=== PATIENT | male | born 1990 | race Caucasian/White ===

== ENCOUNTER 2018-07-20 11:06 | Emergency (ER) | payer OTHER ==
[~2018-07-20] VITALS: Ht 182.9 cm; Wt 79.4 kg
[2018-07-20] MEDS ORDERED: ALBU90OI6 INH (12:04)
[2018-07-20] MEDS ORDERED: QVAR REDIHALE10.6 GM IH (12:04)
[2018-07-20] MEDS ORDERED: Zithromax250 MG PO (12:21)
[2018-07-20] MEDS ORDERED: Prednisone20 MG PO (12:21)
== END 2018-07-20 12:29 | disposition home or self-care (01) ==
LOC: ER 11:06
DX: K05.10 Chronic gingivitis, plaque induced (principal); R59.0 Localized enlarged lymph nodes; Z79.899 Other long term (current) drug therapy; F17.200 Nicotine dependence, unspecified, uncomplicated
CPT/HCPCS: 99282

== ENCOUNTER 2018-08-23 20:43 | Emergency (ER) | payer OTHER ==
[~2018-08-23] VITALS: Ht 182.9 cm; Wt 79.4 kg
[~2018-08-23 20:43] MED LIST: ALBU90OI6 INH; Prednisone20 MG PO; QVAR REDIHALE10.6 GM IH; Zithromax250 MG PO
[2018-08-23] MEDS ORDERED: QVAR REDIHALE10.6 GM INH (21:42)
[2018-08-23] MEDS ORDERED: ALBU90OI INH (21:42)
== END 2018-08-23 21:45 | disposition home or self-care (01) ==
LOC: ER 20:43
DX: Z76.0 Encounter for issue of repeat prescription (principal); Z87.891 Personal history of nicotine dependence; J45.909 Unspecified asthma, uncomplicated
CPT/HCPCS: 99281

== ENCOUNTER 2018-12-28 11:01 | Emergency (ER) | payer OTHER ==
[~2018-12-28] VITALS: Ht 182.9 cm; Wt 81.7 kg
[~2018-12-28 11:01] MED LIST changes: +ALBU90OI INH; +QVAR REDIHALE10.6 GM INH
[2018-12-28] MEDS ORDERED: ALBU90OI INH (11:57)
[2018-12-28] MEDS ORDERED: QVAR REDIHALE10.6 GM INH (11:57)
[2018-12-28] MEDS ORDERED: Prednisone20 MG PO (11:57)
== END 2018-12-28 12:14 | disposition home or self-care (01) ==
LOC: ER 11:01
DX: J45.901 Unspecified asthma with (acute) exacerbation (principal); Z87.891 Personal history of nicotine dependence
CPT/HCPCS: 94640; 94760; 99283-25

== ENCOUNTER 2019-11-18 00:08 | Emergency (ER) | payer OTHER ==
[~2019-11-18] VITALS: Ht 182.9 cm; Wt 79.4 kg
[2019-11-18] MEDS ORDERED: QVAR REDIHALE10.6 G2 INH (00:40)
[2019-11-18] MEDS ORDERED: ALBU90OI INH (00:40)
== END 2019-11-18 01:15 | disposition home or self-care (01) ==
LOC: ER 00:08
DX: J45.909 Unspecified asthma, uncomplicated (principal); Z76.0 Encounter for issue of repeat prescription
CPT/HCPCS: 99281

== ENCOUNTER 2020-06-21 10:59 | Emergency (ER) | payer OTHER ==
[~2020-06-21] VITALS: Ht 182.9 cm; Wt 81.7 kg
[~2020-06-21 10:59] MED LIST changes: +QVAR REDIHALE10.6 G2 INH
[2020-06-21] MEDS ORDERED: QVAR REDIHALE10.6 G3 INH (11:55)
[2020-06-21] MEDS ORDERED: ALBU90OI INH (11:55)
== END 2020-06-21 12:00 | disposition home or self-care (01) ==
LOC: ER 10:59
DX: J45.909 Unspecified asthma, uncomplicated (principal); Z76.0 Encounter for issue of repeat prescription; F17.200 Nicotine dependence, unspecified, uncomplicated; Z79.899 Other long term (current) drug therapy; Z79.51 Long term (current) use of inhaled steroids
CPT/HCPCS: 99281

== ENCOUNTER 2021-12-20 01:58 | Emergency (ER) | payer OTHER ==
[~2021-12-20] VITALS: Ht 182.9 cm; Wt 81.7 kg
[~2021-12-20 01:58] MED LIST changes: +QVAR REDIHALE10.6 G3 INH
[2021-12-20] MEDS ORDERED: ALBU90OI INH (03:01)
== END 2021-12-20 03:17 | disposition home or self-care (01) ==
LOC: ER 01:58
DX: J45.901 Unspecified asthma with (acute) exacerbation (principal); F17.200 Nicotine dependence, unspecified, uncomplicated; Z79.899 Other long term (current) drug therapy
CPT/HCPCS: 94640; 94664; A9270; J1100

== ENCOUNTER 2022-03-05 01:07 | Emergency (ER) | payer OTHER ==
[~2022-03-05] VITALS: Ht 182.9 cm; Wt 79.4 kg
== END 2022-03-05 04:18 | disposition home or self-care (01) ==
LOC: ER 01:07
DX: J45.901 Unspecified asthma with (acute) exacerbation (principal); F17.200 Nicotine dependence, unspecified, uncomplicated; Z79.899 Other long term (current) drug therapy
CPT/HCPCS: 94644; 94664; A9270; J1100

== ENCOUNTER 2022-04-22 00:18 | Emergency (ER) | payer OTHER ==
[~2022-04-22] VITALS: Ht 182.9 cm; Wt 81.7 kg
[2022-04-22] MEDS ORDERED: Ventolin/Prove6.7 GM INH (00:37)
== END 2022-04-22 00:43 | disposition home or self-care (01) ==
LOC: ER 00:18
DX: Z76.0 Encounter for issue of repeat prescription (principal); J45.909 Unspecified asthma, uncomplicated; F17.290 Nicotine dependence, other tobacco product, uncomplicated; Z79.899 Other long term (current) drug therapy
CPT/HCPCS: A9270

== ENCOUNTER 2022-05-02 17:23 | Emergency (ER) | payer OTHER ==
[~2022-05-02] VITALS: Ht 182.9 cm; Wt 81.7 kg
[~2022-05-02 17:23] MED LIST changes: +Ventolin/Prove6.7 GM INH
[2022-05-02] MEDS ORDERED: QVAR REDIHALE10.6 G2 INH (17:34)
== END 2022-05-02 17:35 | disposition home or self-care (01) ==
LOC: ER 17:23
DX: Z76.0 Encounter for issue of repeat prescription (principal); J45.909 Unspecified asthma, uncomplicated; F17.200 Nicotine dependence, unspecified, uncomplicated
CPT/HCPCS: 99281

== ENCOUNTER 2022-11-22 10:26 | Emergency (ER) | payer OTHER ==
[~2022-11-22] VITALS: Ht 182.9 cm; Wt 81.7 kg
[2022-11-22 10:44] VITALS: BP 110/99
[2022-11-22] MEDS ORDERED: QVAR REDIHALE10.6 G2 INH (10:47)
[2022-11-22] MEDS ORDERED: ALBU90OI INH (10:47)
== END 2022-11-22 10:48 | disposition home or self-care (01) ==
LOC: ER 10:26
DX: J45.901 Unspecified asthma with (acute) exacerbation (principal); F17.200 Nicotine dependence, unspecified, uncomplicated; Z79.899 Other long term (current) drug therapy
CPT/HCPCS: 99281

== ENCOUNTER 2023-03-02 17:53 | Emergency (ER) | payer OTHER ==
[~2023-03-02] VITALS: Ht 182.9 cm; Wt 79.4 kg
[2023-03-02 18:00] VITALS: BP 126/86
[2023-03-04 02:11] LABS: CHLAMYDIA TRACHOMATIS, NAA Negative (Negative)
== END 2023-03-02 19:02 | disposition home or self-care (01) ==
LOC: ER 17:53
PROVIDERS: Physician Assistant
DX: Z11.3 Encounter for screening for infections with a predominantly sexual mode of transmission (principal); Z20.2 Contact with and (suspected) exposure to infections with a predominantly sexual mode of transmission; F17.200 Nicotine dependence, unspecified, uncomplicated
CPT/HCPCS: 87491; 87591; 99283